=== PATIENT | male | born 1985 ===

== ENCOUNTER → 2016-09-25 | Outpatient (CLI) | payer BC | END | disposition home or self-care (01) | LOC: LABWHC1 08:41 | PROVIDERS: ATTEND Internal Medicine | DX: E87.8 Other disorders of electrolyte and fluid balance, not elsewhere classified (principal); E78.5 Hyperlipidemia, unspecified | CPT/HCPCS: 89321 ==

== ENCOUNTER → 2024-06-12 | Outpatient (CLI) | payer BC ==
--- NOTE | 2024-06-12 11:54 | XR ---
EXAMINATION TYPE: XR chest 2V DATE OF EXAM: 06/12/2024 COMPARISON: NONE HISTORY: Chest pain TECHNIQUE: Frontal and lateral views of the chest are obtained. FINDINGS: Vague infiltrate lateral right lung base. Correlate for developing pneumonia. No evidence for pneumothorax. No pleural effusion. The cardiac silhouette size is within normal limits. The osseous structures are grossly intact. IMPRESSION: 1. Vague infiltrate lateral right lung base. Correlate for developing pneumonia. [facility], , 06/12/2024 11:52 AM
== END | disposition home or self-care (01) ==
LOC: RADXRMAIN 10:27
PROVIDERS: ATTEND Internal Medicine
CPT/HCPCS: 71046